=== PATIENT | female | born 1975 ===

== ENCOUNTER 2018-09-08 08:20 | Day surgery (SDC) | payer OTHER ==
[2018-09-07 12:52] VITALS: BMI 34.7
[2018-09-08] MEDS ORDERED: PROPOFOL 20 ML ONE (09:33)
[2018-09-08] MEDS ORDERED: HYDROmorphone HCl 2 MG/ML VIAL ONE (09:33)
[2018-09-08] MEDS ORDERED: MIDAZOLAM HCL 2 MG/2 ML SINGLE DOSE VIAL ONE (09:33)
[2018-09-08] MEDS ORDERED: ONDANSETRON 4 MG/2 ML VIAL ONE ×2 (09:34→12:46)
[2018-09-08] MEDS ORDERED: LIDOCAINE HCL/PF 2% SDV 5ML VIAL ONE (09:34)
[2018-09-08] MEDS ORDERED: KETOROLAC TROMETHAMINE 30 MG/1 ML VIAL ONE (09:34)
[2018-09-08] MEDS ORDERED: DEXAMETHASONE SOD PHOSPHATE 4 MG/1 ML VIAL ONE (09:34)
[2018-09-08] MEDS ORDERED: ROCURONIUM BROMIDE 50 MG/5 ML VIAL ONE (09:36)
--- NOTE | 2018-09-08 09:36 | HP ---
History & Physical Update - History History: No Change - Physical Physical: No Change - Plan Plan: No Change (Patient with abdominal pain , diagnosed to have cholelithiasis , is scheduled to have laparoscopic cholecystectomy, possible open. Procedure has been explained with risks, benefits and complications. Consent obtained.)
[2018-09-08] MEDS ORDERED: BUPIVACAINE HCL/PF 0.5% (5MG/ML) 10 ML VIAL ONE (09:37)
[2018-09-08] MEDS ORDERED: SUCCINYLCHOLINE CHLORIDE 200 MG/10 ML VIAL ONE (09:38)
[2018-09-08] MEDS ORDERED: ONDANSETRON 4 MG/2 ML VIAL IVPUSH PRN (09:51)
[2018-09-08] MEDS ORDERED: oxyCODONE HCL 5 MG TABLET PO PRN (09:51)
[2018-09-08] MEDS ORDERED: LACTATED RINGERS SOLUTION 1,000 ML IV SCH (10:00)
[2018-09-08] MEDS ORDERED: ceFAZolin SODIUM 1 GM VIAL IVPB ONE (10:20)
[2018-09-08] MEDS ORDERED: BUPIVACAINE HCL/PF 0.5% (5MG/ML) 10 ML VIAL IJ ONE (10:47)
[2018-09-08] MEDS ORDERED: hydrALAZINE HCL 20 MG/ML VIAL ONE (10:54)
[2018-09-08] MEDS ORDERED: INDOCYANINE GREEN 25 MG/10 ML VIAL IVPUSH ONE (11:24)
--- NOTE | 2018-09-08 12:49 | OP ---
Operative Note - Note: Operative Date: 09/08/18 Pre-Operative Diagnosis: Cholelithiasis, chronic cholecystitis. Operation: Laparoscopic cholecystectomy with intraoperative cholangiogram, and lusis of omental and intestinal adhesions. Findings: Large thickened gallbladder with calculus, dense adhesions of omentum , and duodenum to gallbladder and liver. Post-Operative Diagnosis: Other (Chronic cholecystitis with dense omental and intestinal adhesions.) Surgeon: Franca Barrow Adjunct Psychology Instructor: Yumi Adam Anesthesia: General Specimens Removed: Gallbladder. Estimated Blood Loss (mls): 10 Operative Report Dictated: Yes
--- NOTE | 2018-09-08 12:56 | SURG ---
Surgery Heel Top Lift Splitter Note Heel Top Lift Splitter: Yumi Adam PA-C (Suzy) Date of Service: 09/08/18 Diagnosis: Cholelithiasis, chronic cholecystitis. Procedure: Laparoscopic cholecystectomy with intraoperative cholangiogram, and lysis of omental and intestinal adhesions. I was present for the entirety of the operative procedure. For further detail, please refer to operative report. Visit type - Case Type Case Type: Scheduled - Emergency Emergency Visit: No - New patient This patient is new to me today: Yes Date on this admission: 09/08/18 - Critical Care Critical Care patient: No
[2018-09-08 15:12] VITALS: PULSE 90
[2018-09-08 18:09] VITALS: BP 103/60; TEMP 98
--- NOTE | 2018-09-09 06:37 | OP ---
DATE OF OPERATION: 09/08/2018 PREOPERATIVE DIAGNOSIS: Cholelithiasis with chronic cholecystitis. POSTOPERATIVE DIAGNOSIS: Cholelithiasis with chronic cholecystitis and dense adhesions of omentum duodenum and the right colon. OPERATIVE PROCEDURE: Laparoscopic cholecystectomy with intraoperative cholangiogram, and lysis of dense adhesions of omentum, duodenum and colon. SURGEON: Emelia Barrow MD SELF DEFENSE INSTRUCTOR: FRENCH Monroe ANESTHESIA: General anesthesia. OPERATIVE DESCRIPTION: This 43-year-old woman presented with longstanding right upper quadrant abdominal pain and was found to have cholecystitis with a large stone in the gallbladder with thickened gallbladder wall. She had previous surgery for hysterectomy in 2017 with a lower abdominal scar. The patient was brought in for laparoscopic cholecystectomy electively. Consent was obtained. Risks, benefits , and complications have been having discussed with the patient. The patient was brought to the operating room. General anesthesia was administered. She was then given a gram of Ancef. A time-out was called. The abdomen was painted and draped. An incision was made in the infraumbilical portion of the umbilicus, which was deepened through the skin, and subcutaneous tissue, and the linea alba. The peritoneum was incised, and the abdominal cavity was entered. Two stay sutures of 2-0 Vicryl were obtained on either side of the midline as stay sutures. A 10- to 12-mm laparoscopic trocar of the Yohannes type was introduced into the abdominal cavity. This was anchored with Vicryl sutures. The abdomen was insufflated with carbon dioxide at 6 L/min, with maximum intra-abdominal pressure of 15 mmHg. A 10-mm camera was introduced into the abdominal cavity. During the procedure, the camera was switched between the 5-mm and the 10-mm camera. On inspecting the right upper quadrant of the abdomen, the gallbladder was completely covered with dense adhesions of omentum, duodenum as well as the right colon. Only the tip of the fundus of the gallbladder was visualized. Two 5-mm trocars were inserted in the right upper quadrant of the abdomen, one along the anterior axillary line, and another along the midclavicular line, 2-3 fingerbreadths below the costal margin. This was noted entering the abdominal cavity under direct vision with the camera. There were adhesions of the omentum as well as small bowel in the right lower quadrant of the abdomen. Care was taken to avoid any damage to the intestine during introduction of the trocar. A 3third, 5-mm trocar was introduced through a small incision in the midline, in the subxiphoid area. This trocar entered the abdominal cavity to the right of the falciform ligament. This was also observed with a camera. When this was done, a 5-mm trocar was inserted into the abdominal cavity, through the lateral 5-mm trocar. This grasped the fundus of the gallbladder and retracted it cephalad and laterally. The adhesions of gallbladder were also retracted cephalad and laterally, along with the gallbladder, Along with it, the colon and the duodenum were also retracted. With blunt dissection, as well as sharp dissection ,as well as using electrocautery and the harmonic scalpel, the adhesions were carefully lysed, on the gallbladder, as well as on the liver. This process progressed until the infundibulum of the gallbladder was visualized. Care was taken not to injure the intestine as well as the blood vessels. As there were dense adhesions around Calot's triangle, it was decided to use indocyanine green for cholangiography. This was injected, as the lysis of adhesions progressed. With deliberate, careful dissection, the infundibulum of the gallbladder and the cystic duct junction was visualized. Sharp and blunt dissection, as well as using the graspers, the cystic duct was isolated circumferentially. This was a short cystic duct. The junction of the cystic duct and common duct was also visualized. The cystic artery was from the cystic duct. After the cystic duct was circumferentially visualized, it was divided between clips. A 10-mm clip on a 5mm. clip applicator,was introduced through the subxiphoid trocar. Three clips were placed towards the common duct and 2 clips toward the gallbladder. The cystic duct was then divided. Further dissection brought into view,the cystic artery. This was also divided between clips. At this time, the cholangiography visualized the common bile duct. This was also seen green. Once this was done, retraction was applied around the cystic duct stump, and the peritoneal reflection on either side of the gallbladder was divided using the harmonic scalpel, as well as sharp and blunt dissection. The gallbladder was then mobilized from the gallbladder bed all the way towards the fundus of the gallbladder. Hemostasis was maintained as the dissection proceeded. The cholecystectomy was, thus, completed. The gallbladder was also quite large, and extending down towards the common bile duct. Hemostasis was accomplished and maintained as the dissection proceeded. There was no bleeding, no bile leak during the procedure. An EndoCatch was then introduced through the umbilical port the camera being switched to the subxiphoid port. The gallbladder was placed in the EndoCatch and retrieved out of the abdominal cavity. The gallbladder wall was very thick, and there was a large stone within the gallbladder. The gallbladder bed was then thoroughly irrigated with normal saline. The fluid return was clear. There was no bleeding and no bile leak. The instruments were then withdrawn under direct vision. The linea alba in the midline at the umbilical port was approximated with interrupted and [id number] 2-0 Vicryl sutures. Then 0.5% Marcaine was injected into the wound. The skin was approximated with buried interrupted 4-0 Monocryl sutures. Dermabond was applied across the skin edges. The patient tolerated the procedure well. Estimated blood loss was less than 10 mL. Sponge count and instrument count was correct. The patient was extubated and sent to the recovery room in satisfactory and stable condition. Shanika [id number] cc: MD ANISA Morris
--- NOTE | 2018-09-11 18:21 | PATH ---
Surgical Pathology Report Patient Name: ALEXIS ALONSO [facility] [place]. Rec. #: [id number] /Age/Gender: 1975 (Age: 43) / F Account: [id number] Location: [facility] SURGICAL Taken: 09/08/2018 Received: 09/08/2018 Reported: 09/11/2018 Physicians: Emelia Barrow M.D. Specimen(s) Received GALLBLADDER Clinical History Cholelithiasis Final Diagnosis GALLBLADDER, LAPAROSCOPIC CHOLECYSTECTOMY: CHRONIC CHOLECYSTITIS WITH CHOLELITHIASIS. ONE BENIGN PERIDUCTAL LYMPH NODE (0/1). Electronically Signed Jamilah Rowell M.D. Gross Description Received in formalin, labeled "gallbladder," is a 6.7 x 3.0 x 2.2 cm. gallbladder with a 0.2 cm. in length portion of cystic duct attached. There is a 0.6 cm greatest dimension [place]-red possible periductal lymph node present. The outer surface is [place]-pink and varies from smooth to shaggy. The lumen contains brown, tenacious bile as well as a single 3.2 cm in greatest dimension green, ovoid cholelith. The mucosa is hyperemic. The wall of the gallbladder ranges from 0.2-0.5 cm. in thickness. Regional Director sections are submitted in one cassette. 09/08/201809/08/2018
== END 2018-09-08 17:00 | disposition home or self-care (01) ==
LOC: JASU-SURG 08:20
PROVIDERS: ATTEND Specialist
PROC: BF03YZZ Plain Radiography of Gallbladder and Bile Ducts using Other Contrast (ICD-10-PCS; 2018-09-08)
PROC: 0FT44ZZ Resection of Gallbladder, Percutaneous Endoscopic Approach (ICD-10-PCS; principal; 2018-09-08 09:30)
DX: K80.10 Calculus of gallbladder with chronic cholecystitis without obstruction (principal)
CPT/HCPCS: 88304-TC; 94760